=== PATIENT | male | born 1995 | race Caucasian/White ===

== ENCOUNTER 2016-04-16 09:31 | Inpatient (IN) | payer OTHER ==
[2016-04-16] VITALS (7 sets, daily range): BP systolic 127–160; BP diastolic 84–104; PULSE 104–128; RESP 18–22; TEMP 98–99; O2SAT 98–100
[~2016-04-16] VITALS: Ht 182.9 cm; Wt 76.7 kg
[~2016-04-16 09:31] MED LIST: CIPR500T2 PO
--- NOTE | 2016-04-16 09:52 | PD ---
HPI Chief Complaint: Suicide Ideation/Attempt Time Seen by Provider: 09:40 Travel History International Travel<30 days: No Contact w/Intl Traveler<30days: No Traveled to known affect area: No History of Present Illness HPI Patient is a 20-year-old male presents to emergency room with police officers for suicidal ideations. White act initiated by police officers. As per police , patient called the station and told officers that he needs to go to prison, apparently patient's mother got involved in the conversation and hung up the phone. Police officers went to his home for a well person check, reports that patient was scattered in his thoughts and reported that he needed psychiatric help. Patient admitted that he had suicidal ideations. Patient in the emergency room, reports that he needs psychiatric help, reports that he needed help a long time ago but but never got it. Patient reports that he is suicidal, reports no plan for suicide. Patient reports that he is " taking too much." Patient reports that "my father is a bad man." Patient reports "I am being vague, I just need to talk to." Patient will not admit or deny use of any drugs or alcohol. PFSH Past Medical History Asthma: Yes Autoimmune Disease: No Cardiovascular Problems: No Diminished Hearing: No Genitourinary: No Musculoskeletal: No Neurologic: Yes Psychiatric: No Respiratory: Yes (HX OF ASTHMA) Immunizations Current: Yes Past Surgical History Surgical History: No Previous Surgery Family History Family History: Negative Social History Alcohol Use: No Tobacco Use: No Substance Use: Yes (Marijuana daily ) Allergies-Medications (Allergen,Severity, Reaction): Coded Allergies: No Known Allergies (Verified , 03/24/16) Reported Meds & Prescriptions Reported Meds & Active Scripts Active Reported Ciprofloxacin (Ciprofloxacin HCl) 500 Mg Tab 500 Mg PO BID Review of Systems General / Constitutional: No: Fever Eyes: No: Visual changes HENT: No: Headaches Cardiovascular: No: Chest Pain or Discomfort Respiratory: No: Shortness of Breath Gastrointestinal: No: Abdominal Pain Genitourinary: No: Dysuria Musculoskeletal: No: Pain Skin: No Rash Neurologic: No: Weakness Psychiatric: Positive: Anxiety, Depression, Suicidal Ideations, No: Homicidal Ideation Endocrine: No: Polydipsia Hematologic/Lymphatic: No: Easy Bruising Physical Exam Narrative GENERAL: No acute distress, nontoxic SKIN: Warm and dry. HEAD: Atraumatic. Normocephalic. ENT: No nasal bleeding or discharge. Mucous membranes pink and moist. NECK: Trachea midline. No JVD. CARDIOVASCULAR: Regular rate and rhythm. No murmur appreciated. RESPIRATORY: No accessory muscle use. Clear to auscultation. Breath sounds equal bilaterally. GASTROINTESTINAL: Abdomen soft, non-tender, nondistended. Hepatic and splenic margins not palpable. MUSCULOSKELETAL: No obvious deformities. No clubbing. No cyanosis. No edema. NEUROLOGICAL: Awake and alert. No obvious cranial nerve deficits. Motor grossly within normal limits. Normal speech. PSYCHIATRIC: Flat affect, anxious on exam Data Data Last Documented VS Vital Signs Date Time Temp Pulse Resp B/P Pulse Ox O2 Delivery O2 Flow Rate FiO2 04/16/16 10:29 108 18 136/91 98 Room Air 04/16/16 09:40 98.8 Orders Complete Blood Count With Diff (04/16/16 09:47) Comprehensive Metabolic Panel (04/16/16 09:47) Drug Screen, Random Urine (04/16/16 09:47) Psych Screen (04/16/16 09:47) Lorazepam (Ativan) (04/16/16 10:00) Labs Laboratory Tests Test 04/16/16 09:50 White Blood Count 10.4 TH/MM3 Red Blood Count 5.37 MIL/MM3 Hemoglobin 16.6 GM/DL Hematocrit 48.7 % Mean Corpuscular Volume 90.7 FL Mean Corpuscular Hemoglobin 31.0 PG Mean Corpuscular Hemoglobin 34.1 % Concent Red Cell Distribution Width 13.0 % Platelet Count 291 TH/MM3 Mean Platelet Volume 7.9 FL Neutrophils (%) (Auto) 83.0 % Lymphocytes (%) (Auto) 9.3 % Monocytes (%) (Auto) 7.2 % Eosinophils (%) (Auto) 0.1 % Basophils (%) (Auto) 0.4 % Neutrophils # (Auto) 8.7 TH/MM3 Lymphocytes # (Auto) 1.0 TH/MM3 Monocytes # (Auto) 0.8 TH/MM3 Eosinophils # (Auto) 0.0 TH/MM3 Basophils # (Auto) 0.0 TH/MM3 CBC Comment DIFF FINAL Differential Comment Sodium Level 139 MEQ/L Potassium Level 4.1 MEQ/L Chloride Level 107 MEQ/L Carbon Dioxide Level 22.3 MEQ/L Anion Gap 10 MEQ/L Blood Urea Nitrogen 14 MG/DL Creatinine 1.00 MG/DL Estimat Glomerular Filtration 96 ML/MIN Rate Random Glucose 121 MG/DL Calcium Level 9.6 MG/DL Total Bilirubin 0.8 MG/DL Aspartate Amino Transf 21 U/L (AST/SGOT) Alanine Aminotransferase 40 U/L (ALT/SGPT) Alkaline Phosphatase 66 U/L Total Protein 8.6 GM/DL Albumin 4.8 GM/DL MDM Medical Decision Making Medical Screen Exam Complete: Yes Emergency Medical Condition: Yes Differential Diagnosis Suicidal ideations, anxiety attack, unspecified psychosis, drug abuse Narrative Course 20-year-old male who presents to emergency room with police officers after he had been White acted for suicidal ideations. Psychiatric screening labs drawn. Will have patient see psych screeners after he is medically cleared Concepcion Rainey DO Apr 16, 2016 09:52
[2016-04-16] MEDS ORDERED: LORazepam 1 MG TAB PO ONE (10:00)
[2016-04-16 10:04] LABS: AUTOMATED NEUTROPHIL # 8.7 TH/MM3 (1.8-7.7); BASOPHIL % 0.4 % (0.0-2.0); EOSINOPHIL % 0.1 % (0.0-4.0); HEMATOCRIT 48.7 % (39.0-51.0); HEMO FLAGS DIFF FINAL; LYMPH % 9.3 % (9.0-44.0); MEAN CELL VOLUME 90.7 FL (80.0-100.0); MEAN CORPUSCULAR HGB CONC 34.1 % (32.0-36.0); MONO % 7.2 % (0.0-8.0); PLATELET COUNT 291 TH/MM3 (150-450); RED BLOOD COUNT 5.37 MIL/MM3 (4.50-5.90); WHITE BLOOD COUNT 10.4 TH/MM3 (4.0-11.0)
[2016-04-16 10:21] LABS: ALKALINE PHOSPHATASE 66 U/L (45-117); TOTAL BILIRUBIN ADULT 0.8 MG/DL (0.2-1.0)
[2016-04-16 10:22] LABS: ALT (GPT) 40 U/L (9-52); ANION GAP 10 MEQ/L (5-15); AST (GOT) 21 U/L (15-39); BICARBONATE 22.3 MEQ/L (21.0-32.0); BLOOD UREA NITROGEN 14 MG/DL (7-18); CHLORIDE 107 MEQ/L (98-107); GLOMERULAR FILTRATION RATE 96 ML/MIN (>89); POTASSIUM 4.1 MEQ/L (3.5-5.1); SODIUM (NA) 139 MEQ/L (136-145)
[2016-04-16 11:42] LABS: AMPHETAMINE, URINE NEG (NEG); BARBITURATES, URINE NEG (NEG); COCAINE, URINE NEG (NEG)
[2016-04-16] MEDS ORDERED: ALUMINUM/MAGNESIUM/SIMETH 30 ML CUP PO PRN (18:00)
[2016-04-16] MEDS ORDERED: LORazepam 1 MG TAB PO PRN (18:00)
[2016-04-16] MEDS ORDERED: MAGNESIUM HYDROXIDE SUSP 30 ML CUP PO PRN (18:00)
[2016-04-16] MEDS ORDERED: LORazepam 2 MG/ML VIAL IM PRN (18:00)
[2016-04-17] VITALS (13 sets, daily range): BP systolic 116–153; BP diastolic 51–103; PULSE 92–155; RESP 16–22; TEMP 97.8–99.2; O2SAT 98–100
[2016-04-17 08:02] LABS: ANION GAP 10 MEQ/L (5-15); BICARBONATE 24.4 MEQ/L (21.0-32.0); BLOOD UREA NITROGEN 12 MG/DL (7-18); CHLORIDE 104 MEQ/L (98-107); GLOMERULAR FILTRATION RATE 100 ML/MIN (>89); POTASSIUM 4.1 MEQ/L (3.5-5.1); SODIUM (NA) 138 MEQ/L (136-145)
[2016-04-17 08:04] LABS: HDL CHOLESTEROL 87.3 MG/DL (40.0-60.0); LDL CHOLESTEROL 57 MG/DL (0-99)
--- NOTE | 2016-04-17 09:58 | HHI.HP ---
Provisional Diagnosis Admission Date Apr 16, 2016 at 17:44 [place] I. 1. Other psychotic disorder Rule out substance-induced psychotic disorder Rule out primary psychotic disorder Rule out psychotic disorder due to a general medical condition [place] II. Deferred [place] V. GAF is 15 presently Certification of Person's Competence To Provide Express and Informed Consent I have personally examined Eliseo Shay , a person being served at [facility] on, Apr 17, 2016 09:58. Express and informed consent means consent voluntarily given in writing, by a competent person, after sufficient explanation and disclosure of the subject matter involved to enable the person to make a knowing and willful decision without any element of force, fraud, deceit, duress, or other form of constraint or coercion. This person is 18 years of age or older, is not now known to be incompetent to consent to treatment with a guardian advocate, and does not have a health care surrogate or proxy currently making medical treatment decisions. I have found this person to be one of the following: [] Competent to provide express and informed consent, as defined above, for voluntary admission to this facility and is competent to provide express and informed consent for treatment. He/she has the consistent capacity to make well reasoned, willful, and knowing decisions concerning his or her medical or mental health treatment. The person fully and consistently understands the purpose of the admission for examination/placement and is fully capable of personally exercising all rights [place] [x] Incompetent to provide express and informed consent to voluntary admission, and this is incompetent to provide express and informed consent to treatment. The person must be transferred to involuntary status and a petition for a guardian advocate filed with the Circuit Court. [] Refusing to provide express and informed consent to voluntary admission but is competent to provide express and informed consent for treatment. The person must be discharged or transferred to involuntary status. Form shall be completed within 24 hours of a person's arrival at the receiving facility and filed in the clinical record of each person: 1. Admitted on a voluntary basis 2. Permitted to provide express and informed consent to his/her own treatment 3. Allowed to transfer from involuntary to voluntary status 4. Prior to permitting a person to consent to his or her own treatment after having been previously found incompetent to consent to treatment. History of Present Illness Capacity: Lacks Capacity HPI Mr. 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 I see that he told the ED provider that he has been in need of psychiatric help for some time but never got it. Reviewing the electronic medical record, I note that the patient was seen by nurse practitioner Binu in the middle of March after presenting with psychosis and admitting to recent use of Dilaudid and Xanax, although his urine toxicology was negative at that time. Patient seen and examined. Chart reviewed. Case discussed with nursing staff on the inpatient psychiatric unit. I arrived on the unit in response to an " all male staff" call that had been initiated because the patient grew aggressive and tried to assault staff following a telephone conversation. Upon my arrival the patient remains agitated and I have ordered him medicated with Haldol 10mg, Ativan 2mg and Benadryl 50mg IM and placed in restraints for safety. I return to evaluate him ~30min later [id number] as required for violent restraint. He is now somewhat calmer. He is in no acute physical distress. He presents as quite paranoid and somewhat disorganized. When I ask why he has come into the hospital he says, "Well, my mom's straight. I know what the hell I want. I need to help." He endorses ongoing AVH "like things that aren't there" although he cannot be more specific. He says that his psychiatric symptoms began "because I stopped doing drugs. [id number]." When I ask what drugs, he replies that he has been "trippin'." I inquire again what he has been tripping on, and he says "trippin' about my nayely. Trippin' about my fucking nayely." He then admits to use of opiates and benzos in the past and reports more recent use of MDMA. He denies SI or HI but seems unreliable to contract for safety in his present state. Psychiatric ROS somewhat limited because of his mental state. Unable to obtain reliable past psychiatric, family, chemical dependency or social history from patient because of his mental state. Given patient's mental state, I did endeavor to obtain collateral information from patient's mother, whose contact is given as Brandie Shay and is listed in EMR. I tried calling the home number and this rang to a voicemail with 'faVaultize machine' tones playing over it. I left a generic voicemail requesting a call back. I additionally called the 'Other' number, and this rang to a [facility] [employer] with a message saying they were not accepting calls. Nursing staff does inform me that a woman giving her name as Brandie Pacheco and reporting that she is patient's mother has been calling the unit and harassing staff. I see in nursing notes that she threatened: "I will come there and galicia you down if my son remains psychotic. I will [place] all of you." I am unable to confirm that Ms. Pacheco is in fact the patient's mother and the patient himself is unable to provide any clarity on this issue given his current mental state. Review of Systems ROS Limitations: Uncooperative, Psychotic, Poor Historian Other No reported physical complaints at this time, but limited ROS because of his present mental state. Past Psych History Psychological trauma history Unable to obtain at this time. Violence risk - others (6 mos) Elevated. Aborted assaultive behavior on the unit. Violence risk - self (6 mos) Elevated due to self-neglect. Substance Abuse History Drugs/Alcohol past 12 months See above Past Family Social History Coded Allergies: No Known Allergies (Verified , 03/24/16) Past Medical History See EMR Reported Medications Ciprofloxacin 500 Mg [id number] Mg PO BID Ref 0 03/24/16 Current Medications Medications (Trade) Dose Ordered Sig/Kaylin Route Start Time Stop Time Status Last Admin (Ativan) 1 mg Q6H PRN PO 04/16/16 18:00 Hold (Ativan Inj) 1 mg Q6H PRN IM 04/16/16 18:00 Hold 04/16/16 19:24 (Tylenol) 650 mg Q4H PRN PO 04/16/16 18:00 (Milk Of Magnesia Liq) 30 ml DAILY PRN PO 04/16/16 18:00 (Mag-Al Plus Susp Liq) 30 ml Q6H PRN PO 04/16/16 18:00 Family History See above Social History See above Patient's Strengths (min. 2) In a monitored setting. Verbally fluent. Physical Exam A physical examination was completed in the emergency room by the ER staff and the patient was medically cleared. On my examination today, the patient appears somewhat calmer than when I initially arrived on the unit. He appears to be a well-nourished, well-developed young adult male. He is somewhat diaphoretic but has no hand tremor, no mydriasis, no other motoric abnormalities that I can note. He remains in restraints for safety. Labs and vital signs reviewed. Vital Signs Vital Signs Date Time Temp Pulse Resp B/P Pulse Ox O2 Delivery O2 Flow Rate FiO2 04/17/16 07:50 97.8 120 22 141/95 99 04/16/16 19:48 Room Air Lab Results Item Value Date Time White Blood Count 10.4 TH/MM3 04/16/16 0950 Hemoglobin 16.6 GM/DL 04/16/16 0950 Platelet Count 291 TH/MM3 04/16/16 0950 Sodium Level 138 MEQ/L 04/17/16 0704 Potassium Level 4.1 MEQ/L 04/17/16 0704 Chloride Level 104 MEQ/L 04/17/16 0704 Carbon Dioxide Level 24.4 MEQ/L 04/17/16 0704 Blood Urea Nitrogen 12 MG/DL 04/17/16 0704 Creatinine 0.97 MG/DL 04/17/16 0704 Aspartate Amino Transf (AST/SGOT) 21 U/L 04/16/16 0950 Alanine Aminotransferase (ALT/SGPT) 40 U/L 04/16/16 0950 Alkaline Phosphatase 66 U/L 04/16/16 0950 Urine Opiates Screen NEG 04/16/16 1115 Urine Barbiturates Screen NEG 04/16/16 1115 Urine Amphetamines Screen NEG 04/16/16 1115 Urine Benzodiazepines Screen NEG 04/16/16 1115 Urine Cocaine Screen NEG 04/16/16 1115 Urine Cannabinoids Screen NEG 04/16/16 1115 Mental Status Examination Patient is in hospital gown. He is fairly disheveled. He is awake and alert and oriented to person, place and date. No motoric abnormalities noted. Speech is somewhat rambling but within normal limits for rate, tone and volume. Language and fund of knowledge are difficult to assess given his mental state otherwise but seem at least average. Mood is difficult to assess but affect seems somewhat restricted and dysphoric. Thought process fairly disorganized with loosening of associations. Patient is fairly paranoid. He appears frankly internally stimulated and reports audiovisual hallucinations as noted above. He denies SI or HI but is unreliable contract for safety in his present state. Insight and judgment are presently poor. Assessment & Plan Problem List: (1) Psychosis ICD Code: F29 Assessment & Plan This is a 20-year-old male with a past chart diagnosis of drug- induced psychosis who presents under a White act and is presently admitted to the inpatient psychiatric unit. Patient presents to me as floridly psychotic. He reports recent use of MDMA. Collateral information is presently wanting, but I am gravely concerned that the patient is suffering either a first break psychotic episode or else a psychotic disorder due to a drug or medical condition. Patient is presently restrained, and we will try to discontinue these as soon as safe to do so. He requires psychiatric admission at this time for safety, observation and stabilization. --Admit inpatient --Involuntary status. I've completed first opinion. Consult for second opinion. Request healthcare surrogate and guardian advocate. --Obtain extended psychiatric urine toxicological screening --Consult to the hospitalist for assessment for possible medical contributions to psychosis --Head CT once patient is calm enough to perform safely. Check EKG. Will also check B12, RPR, HIV, ammonia as part of psychosis workup. Also check a CK given agitation. Encourage fluids. BMP in the morning. --CIWA with Ativan for withdrawal. --Vitals q4h --Counselor to see --Dispo planning --ELOS: unclear at present. Discharge Planning Pending psychiatric stabilization. Request HC Surrog/Guard Advoc?: Yes Problem Qualifiers (1) Psychosis: Qualified Code: F28 - Other psychotic disorder not due to substance or known physiological condition Chadwick Gomez MD Apr 17, 2016 09:58
[2016-04-17] MEDS ORDERED: LORazepam 2 MG/ML VIAL ONE (09:59)
[2016-04-17] MEDS ORDERED: HALOPERIDOL LACTATE 5 MG/ML AMP IM ONE (10:00)
[2016-04-17] MEDS ORDERED: HALOPERIDOL LACTATE 5 MG/ML AMP ONE (10:00)
[2016-04-17] MEDS ORDERED: LORazepam 2 MG/ML VIAL IM ONE (10:00)
--- NOTE | 2016-04-17 10:58 | PD.CONS ---
Provisional Diagnosis Admission Date Apr 16, 2016 at 17:44 History of Present Illness Service Psychiatry Consult Requested By Primary Care Physician No Primary Care Physician HPI Patient is a 20-year-old white male admitted to Dr. lawson service under the White act. Patient was observed by me in the day room becoming quite out of control surrounding and aggressive towards staff necessitating an "all male staff" announcement. Patient was brought under control by staff, brought to restraint room placed in full leather restraints. Dr. lawson was also present the ETO of Haldol Benadryl and Ativan. Patient was screaming incoherently. Dr. lawson signed first opinion petition supporting White act. I agree. Patient meets criteria for involuntary psychiatric hospitalization under the White act. Thus I will cosign second opinion petition supporting White act Review of Systems ROS Limitations: Altered Mental Status, Uncooperative, Combative, Psychotic Past Family Social History Coded Allergies: No Known Allergies (Verified , 03/24/16) Reported Medications Ciprofloxacin 500 Mg [id number] Mg PO BID Ref 0 03/24/16 Current Medications Medications (Trade) Dose Ordered Sig/Kaylin Route Start Time Stop Time Status Last Admin (Ativan) 1 mg Q6H PRN PO 04/16/16 18:00 Hold (Ativan Inj) 1 mg Q6H PRN IM 04/16/16 18:00 Hold 04/16/16 19:24 (Tylenol) 650 mg Q4H PRN PO 04/16/16 18:00 (Milk Of Magnesia Liq) 30 ml DAILY PRN PO 04/16/16 18:00 (Mag-Al Plus Susp Liq) 30 ml Q6H PRN PO 04/16/16 18:00 (Benadryl Inj) 50 mg ONCE ONCE IM 04/17/16 11:00 04/17/16 11:01 04/17/16 10:14 Physical Exam Vital Signs Vital Signs Date Time Temp Pulse Resp B/P Pulse Ox O2 Delivery O2 Flow Rate FiO2 04/17/16 07:50 97.8 120 22 141/95 99 04/16/16 19:48 Room Air Mental Status Examination Speech: Incoherent Orientation: Person Memory: Unremarkable Thought Process: Other (difficult to ascertain due to patient psychosis and behavior) Thought Content: Other (difficult to ascertain due to patient psychosis and behavior) Hallucination Type: None (difficult to ascertain but appears to be responding to internal stimuli) Attention and Concentration: Other (poor) Suicidal Ideation: No (difficult to ascertain due to patient psychosis) Previous Suicide Attempts: No Homicidal Ideation: No (difficult to ascertain due to patient psychosis the patient earlier in the admission did strike out at a floor staff) Previous Homicide Attempts: No (unknown at this time) Insight: Poor Judgement: Poor Affect: Other (marked increase range and intensity) Mood: Angry, Irritable Motor Activity: Normal gait Assessment & Plan Problem List: (1) Unspecified psychosis ICD Code: F29 Assessment & Plan Estimated LOS: Saúl Mcgowan MD Apr 17, 2016 10:58
[2016-04-17] MEDS ORDERED: diphenhydrAMINE HCL 50 MG/ML VIAL IM ONE (11:00)
[2016-04-17] MEDS ORDERED: LORazepam 2 MG TAB PO PRN (12:15)
[2016-04-17] MEDS ORDERED: LORazepam 2 MG/ML VIAL IM PRN ×3 (12:15)
[2016-04-17] MEDS ORDERED: LORazepam 1 MG TAB PO PRN (12:15)
[2016-04-17] MEDS ORDERED: FLUMAZENIL 1 MG/10 ML VIAL IV PUSH PRN (12:15)
[2016-04-17 15:50] LABS: CKMB 1.5 NG/ML (0.5-3.6)
[2016-04-17 16:32] LABS: HEMOGLOBIN A1a 1.2 %; HEMOGLOBIN A1b 0.8 %; HEMOGLOBIN Ao 85.8 %; HEMOGLOBIN F 1.1 %; HEMOGLOBIN LA1C 1.9 %; HEMOGLOBIN P3 3.6 %
[2016-04-17 21:28] LABS: AMPHETAMINE, URINE NEG (NEG); BARBITURATES, URINE NEG (NEG); COCAINE, URINE NEG (NEG)
[2016-04-18 03:57] VITALS: BP 148/88; PULSE 114; RESP 18; TEMP 99.2; O2SAT 99
[2016-04-18 07:56] LABS: POTASSIUM 4.3 MEQ/L (3.5-5.1)
[2016-04-18 08:34] VITALS: BP 151/96; PULSE 112; RESP 18; TEMP 99
[2016-04-18] MEDS: LORazepam 2 MG/ML VIAL IM PRN ×2 (08:50→10:32)
[2016-04-18] MEDS ORDERED: diphenhydrAMINE HCL 50 MG/ML VIAL ONE (10:19)
[2016-04-18] MEDS ORDERED: HALOPERIDOL LACTATE 5 MG/ML AMP ONE (10:20)
[2016-04-18] MEDS ORDERED: HALOPERIDOL LACTATE 5 MG/ML AMP IM STA (10:20)
[2016-04-18] MEDS ORDERED: LORazepam 2 MG/ML VIAL IM STA (10:20)
[2016-04-18] MEDS ORDERED: diphenhydrAMINE HCL 50 MG/ML VIAL IM STA (10:20)
--- NOTE | 2016-04-18 11:37 | HHI.PYPN ---
Subjective Remarks Patient seen and examined with counselor. Prior to my arrival on the unit, patient grew agitated and tried to assault staff. Patient was placed in locked restraints and Dr. Mcgowan, who was on the floor, ordered the patient an ETO of Haldol. I saw and evaluated the patient within 60min of initiation of restraints as required. He is somewhat calmer, having been medicated, but remains psychotic. He says he has "no idea" why he tried to assault staff. He remains internally preoccupied. He cannot contract for safety and answers "I don't know" to questions about suicidality. When I ask if he is having any pain or discomfort from the restraints, he flippantly replies, "just one spot: my nayely." No evident side effects from medications. Patient is able to say that he takes Risperdal twice a day for the management of some sort of psychiatric issue but says that he didn't take it in the several days prior to admission. He reports that he tolerated this medication well. I have been provided with an alternate number for patient's mother Brandie at [phone], and I tried to call this ~12:20pm but received a message that the wireless caller was not available. I was not given the opportunity to leave a VM. Review of Systems ROS Limitations: Uncooperative, Psychotic, Poor Historian Other Except as above, no physical complaints. Objective Alert: Yes Dexter: Person, Place Mood: Agitated Affect: Restricted Memory Intact: Comment (Not formally assessed today) Hallucinations: Other (Appears int stim) Delusions: Yes Delusion Type: Paranoid Suicidal: Ideation (No SI voiced) Homicidal: Ideation (No HI voiced) Insight/Judgement Poor Remarks TP disorganized. Speech rambling. No motoric abnormalities noted. Labs Test 04/17/16 04/17/16 04/18/16 14:47 19:40 06:45 Ammonia 35 MCMOL/L Total Creatine Kinase 788 U/L 1556 U/L Creatine Kinase MB 1.5 NG/ML 5.0 NG/ML Creatine Kinase MB % 0.2 % 0.3 % Urine Opiates Screen NEG Urine Barbiturates Screen NEG Urine Amphetamines Screen NEG Urine Benzodiazepines Screen NEG Urine Cocaine Screen NEG Urine Cannabinoids Screen POS Sodium Level 138 MEQ/L Potassium Level 4.3 MEQ/L Chloride Level 103 MEQ/L Carbon Dioxide Level 26.0 MEQ/L Anion Gap 9 MEQ/L Blood Urea Nitrogen 16 MG/DL Creatinine 0.94 MG/DL Estimat Glomerular Filtration 103 ML/MIN Rate Random Glucose 87 MG/DL Calcium Level 8.9 MG/DL Labs reviewed. Ammonia mildly elevated. CK uptrending, likely due to ongoing agitation. Renal function remains intact. B12, RPR, HIV pending. Pt remains too agitated for Head CT. Extended toxicology pending but basic urine toxicology associated with the extended toxicology is positive for cannabinoids. Vitals/IOs Vital Signs Date Time Temp Pulse Resp B/P Pulse Ox O2 Delivery O2 Flow Rate FiO2 04/18/16 08:34 99.0 112 18 151/96 04/18/16 03:57 99 04/16/16 19:48 Room Air Assessment & Plan Problem List: (1) Psychosis ICD Code: F29 Assessment & Plan Patient continues to experience severely decompensated psychotic episode with violent behavior. Attempts to obtain collateral from family by myself and by counselor wanting today. I do not suspect that mild hyperammonemia is causing psychosis, but I will await hospitalist input, and I did discuss the case briefly with Dr. Gaines before he has evaluated pt. Patient likely would benefit from antipsychotic. I will try resuming his reported Risperdal at low dose with plans to titrate. Continue close monitoring of CK and renal function. D/c restraints once safe to do so. Continue 1:1. Continue other medications and care as ordered. Justification for Cont. Inpt. Impairments and safety. Impairments in self-care. Impairments in reality construction. Impairments in social functioning. Locating conditions, namely the elevated CK. High risk for decompensation. Discharge Planning Pending psychiatric stabilization Request HC Surrog/Guard Advoc?: Yes Problem Qualifiers (1) Psychosis: Qualified Code: F28 - Other psychotic disorder not due to substance or known physiological condition Chadwick Gomez MD Apr 18, 2016 11:37
[2016-04-18 11:59] VITALS: BP 147/81; PULSE 95; RESP 20; TEMP 98.5; O2SAT 98
--- NOTE | 2016-04-18 11:59 | EKG ---
Date Performed: 04/17/2016 Time Performed: 13:19:42 PTAGE: 20 years EKG: POSSIBLE ATRIAL FLUTTER NONSPECIFIC ST & T-WAVE ABNORMALITY ABNORMAL RHYTHM ECG PREVIOUS TRACING : 11/27/2011 11.42 DOCTOR: Eliseo Driscoll Interpretating Date/Time 04/18/2016 11:58:02
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
[2016-04-18] MEDS ORDERED: SODIUM CHLOR 0.9% 1000 ML INJ 1,000 ML IV ONE ×2 (13:30→14:30)
[2016-04-18 15:17] VITALS: BP 133/82; PULSE 108; RESP 18; TEMP 100.7; O2SAT 96
[2016-04-18 15:45] VITALS: BP 133/67; PULSE 94; RESP 16; TEMP 98; O2SAT 98
[2016-04-18] MEDS: ACETAMINOPHEN 325 MG TAB PO PRN (15:45)
[2016-04-18 20:27] VITALS: BP 133/76; PULSE 98; RESP 20; TEMP 98.4; O2SAT 100
[2016-04-18] MEDS: risperiDONE ODT 1 MG TAB PO SCH (21:26)
[2016-04-19 05:38] VITALS: BP 137/69; PULSE 87; RESP 18; TEMP 98.3; O2SAT 99
[2016-04-19 06:10] VITALS: BP 137/69; PULSE 87; RESP 18; TEMP 98.3; O2SAT 99
[2016-04-19 06:16] LABS: POTASSIUM 3.7 MEQ/L (3.5-5.1)
[2016-04-19 07:31] LABS: CKMB 6.6 NG/ML (0.5-3.6)
[2016-04-19] MEDS: risperiDONE ODT 1 MG TAB PO SCH ×2 (08:17→21:02)
[2016-04-19 08:53] VITALS: BP 140/74; PULSE 108; RESP 18; TEMP 97.8; O2SAT 97
[2016-04-19] MEDS: SODIUM CHLOR 0.9% 1000 ML INJ 1,000 ML IV SCH ×4 (10:00→22:30)
--- NOTE | 2016-04-19 11:22 | HHI.PYPN ---
Subjective Remarks Patient seen and examined. Case discussed with RN, counselor, OT. Patient was transferred to Med-Psych unit for IVF for elevated CK. He remains on 1:1 for observation and safety. Per RN, patient has been calm but selectively mute. On my examination today, patient endorses ongoing hallucinations, although he struggles to describe these in detail. He says, "my problem is I'm still a boy , not ready to be a man. Can't turn off all the thoughts in my head. People telling me who I am." No SI or HI voiced. Patient now says that he has been using K2, cannabis, mushrooms and LSD prior to admission. Thought process is slowed with thought blocking. No evident side effects from medications. ~30 minute telephone consultation with patient's mother and father. Mother voices concerns that patient's psychosis is related to antibiotics for UTI that patient took in March. She reports that he has a psychiatric PA outpatient who prescribed Risperdal. She says that current hospitalization was triggered when patient called 911 and said he needed to be taken to intermediate in his psychotic state. I discuss patient's differential diagnosis and treatment plan from a psychiatric standpoint and also discuss the comorbid medical issues, especially the elevated CK. Parents are in agreement with Risperdal treatment and IVF but would like to keep other psychotropics and medications to a minimum. Parents articulate a desire to have the patient home as soon as it is medically safe to do so, even if he is not completely psychiatrically stabilized. They report that they can provide 24 hour care and supervision of the patient. Review of Systems ROS Limitations: Poor Historian Other No reported physical complaints. Objective Alert: Yes [place]: Person, Place (at least) Mood: Calm Affect: Flat Memory Intact: Comment (Not assessed today) Hallucinations: Other (Remains internally preoccupied.) Delusions: Yes Delusion Type: Paranoid Suicidal: Ideation (No SI) Homicidal: Ideation (No HI) Insight/Judgement Poor Remarks No motoric abnormalities noted. Speech slow, halting. TP slow with thought blocking. No posturing or stereotypies. Labs Test 04/19/16 05:20 Sodium Level 140 MEQ/L Potassium Level 3.7 MEQ/L Chloride Level 105 MEQ/L Carbon Dioxide Level 27.0 MEQ/L Anion Gap 8 MEQ/L Blood Urea Nitrogen 11 MG/DL Creatinine 0.74 MG/DL Estimat Glomerular Filtration 136 ML/MIN Rate Random Glucose 91 MG/DL Calcium Level 8.5 MG/DL Total Creatine Kinase 1637 U/L Creatine Kinase MB 6.6 NG/ML Creatine Kinase MB % 0.4 % Labs reviewed. CK essentially unchanged. Renal function intact. I note HCT was performed in March 2016 and was read as negative. First break psychosis workup neg. Extended UTox pending. Vitals/IOs Vital Signs Date Time Temp Pulse Resp B/P Pulse Ox O2 Delivery O2 Flow Rate FiO2 04/19/16 08:53 97.8 108 18 140/74 97 04/16/16 19:48 Room Air Intake and Output 04/18/16 04/18/16 04/18/16 07:59 15:59 23:59 Intake Total 1000 ml Output Total 300 ml Balance 700 ml Assessment & Plan Problem List: (1) Psychosis ICD Code: F29 Assessment & Plan Continue Risperdal as ordered. I will continue CIWA with Ativan for withdrawal but will discontinue PRN Ativan per parent/HCS preference. If the patient becomes agitated, RN can call for ETO. Continue 1:1 for observation/safety. Trend CK/BMP in am. I note Dr. Gaines has ordered ongoing IVF. I will touch base with Dr. Gaines after he has made his rounds on pt. Justification for Cont. Inpt. Safety concerns. Impairments in reality testing. Impairments in social functioning. Risk for decompensation. Discharge Planning Pending psychiatric/medical stabilization. Request HC Surrog/Guard Advoc?: Yes Problem Qualifiers (1) Psychosis: Qualified Code: F28 - Other psychotic disorder not due to substance or known physiological condition Chadwick Gomez MD Apr 19, 2016 11:22
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
[2016-04-19 19:47] VITALS: BP 132/81; PULSE 85; RESP 18; TEMP 98.2; O2SAT 99
[2016-04-20 02:50] VITALS: BP 130/73; PULSE 84; TEMP 97.6; O2SAT 98
[2016-04-20] MEDS: ACETAMINOPHEN 325 MG TAB PO PRN (04:14)
[2016-04-20 05:38] LABS: BICARBONATE 25.9 MEQ/L (21.0-32.0); POTASSIUM 3.7 MEQ/L (3.5-5.1)
[2016-04-20 05:41] VITALS: BP 155/93; PULSE 105; RESP 17; TEMP 97.8; O2SAT 98
[2016-04-20 06:00] VITALS: BP 146/83; PULSE 76; RESP 18; O2SAT 98
[2016-04-20] MEDS: SODIUM CHLOR 0.9% 1000 ML INJ 1,000 ML IV SCH ×2 (06:00→11:00)
[2016-04-20 06:11] LABS: CKMB 3.6 NG/ML (0.5-3.6)
[2016-04-20] MEDS: risperiDONE ODT 1 MG TAB PO SCH (08:19)
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
[2016-04-20] MEDS ORDERED: RISP1 PO ×2 (12:53→13:08)
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
[2016-04-20 13:06] VITALS: BP 142/72; PULSE 85; RESP 18; O2SAT 100
[2016-04-23 07:40] LABS: BATH SALTS (MDPV) UR NEG (NEG); ECSTASY (MDMA) UR NEG (NEG); HEROIN (6-ACETYLMORPHINE) UR NEG (NEG); K2 SPICE UR NEG (NEG); OBMETHADONE UR NEG (NEG); OXYCODONE (PERCODAN) NEG (NEG); PHENCYCLIDINE URINE NEG (NEG)
== END 2016-04-20 14:30 | disposition home or self-care (01) | DRG 885 ==
LOC: NEPA 09:31 → NEDA 17:44 → H270 20:05 → H4EA 04-18 16:05
PROVIDERS: ADMIT Psychiatry & Neurology Psychiatry; ATTEND Psychiatry & Neurology Psychiatry
DX: F29 Unspecified psychosis not due to a substance or known physiological condition (principal); M62.82 Rhabdomyolysis; R45.851 Suicidal ideations; F12.90 Cannabis use, unspecified, uncomplicated; J45.909 Unspecified asthma, uncomplicated; F94.0 Selective mutism; F16.90 Hallucinogen use, unspecified, uncomplicated; Z78.1 Physical restraint status
CPT/HCPCS: 76937; 80048; 80053; 80061; 80307; 80352; 80354; 80356; 80358; 80359; 80371; 82140; 82550; 82552; 82607; 83036; 83789; 83992; 85025; 86592; 86703; 93005; 99284; G0480; G0481; J1200; J1630; J2060; J7030

== ENCOUNTER 2016-04-25 22:41 | Emergency (ER) | payer OTHER ==
[~2016-04-25] VITALS: Ht 182.9 cm; Wt 81.0 kg
[~2016-04-25 22:41] MED LIST changes: -CIPR500T2 PO; +RISP1 PO
[2016-04-25 22:46] VITALS: BP 144/81; PULSE 94; RESP 14; TEMP 98.4; O2SAT 97
[2016-04-25] MEDS ORDERED: SODIUM CHLOR 0.9% 1000 ML INJ 1,000 ML IV ONE (23:33)
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
[2016-04-26 00:07] LABS: AUTOMATED NEUTROPHIL # 5.9 TH/MM3 (1.8-7.7); BASOPHIL % 0.5 % (0.0-2.0); EOSINOPHIL # 0.1 TH/MM3 (0-0.4); EOSINOPHIL % 0.8 % (0.0-4.0); HEMATOCRIT 43.4 % (39.0-51.0); HEMO FLAGS DIFF FINAL; LYMPH % 23.5 % (9.0-44.0); LYMPHOCYTE # 2.3 TH/MM3 (1.0-4.8); MEAN CELL VOLUME 90.8 FL (80.0-100.0); MEAN CORPUSCULAR HEMOGLOBIN 31.2 PG (27.0-34.0); MEAN CORPUSCULAR HGB CONC 34.3 % (32.0-36.0); MONO % 14.8 % (0.0-8.0); NEUT % 60.4 % (16.0-70.0); PLATELET COUNT 286 TH/MM3 (150-450); RED BLOOD COUNT 4.77 MIL/MM3 (4.50-5.90); RED CELL DISTRIBUTION WIDTH 12.9 % (11.6-17.2); WHITE BLOOD COUNT 9.8 TH/MM3 (4.0-11.0)
--- NOTE | 2016-04-26 00:13 | RADRPT ---
EXAM DATE/TIME: 04/25/2016 23:59 [facility] COMPARISON: CT BRAIN W/O CONTRAST, March 24, 2016, 16:37. INDICATIONS : Altered mental status. Headache. RADIATION DOSE: 40.70 CTDIvol (mGy) MEDICAL HISTORY : Asthma. SURGICAL HISTORY : None. ENCOUNTER: Initial ACUITY: 1 day PAIN SCALE: 6/10 LOCATION: cranial TECHNIQUE: Multiple contiguous axial images were obtained of the head. Using automated exposure control and adj ustment of the mA and/or kV according to patient size, radiation dose was kept as low as reasonably a chievable to obtain optimal diagnostic quality images. FINDINGS: CEREBRUM: The ventricles are normal for age. No evidence of midline shift, mass lesion, hemorrhage or acute in farction. No extra-axial fluid collections are seen. POSTERIOR FOSSA: The cerebellum and brainstem are intact. The 4th ventricle is midline. The cerebellopontine angle i s unremarkable. EXTRACRANIAL: The visualized portion of the orbits is intact. SKULL: The calvaria is intact. No evidence of skull fracture. CONCLUSION: Normal examination. Paxton Quarles MD on April 26, 2016 at 0:12 Board Certified Radiologist. This report was verified electronically.
[2016-04-26 00:16] LABS: ALT (GPT) 28 U/L (9-52); ANION GAP 9 MEQ/L (5-15); AST (GOT) 25 U/L (15-39); BICARBONATE 26.9 MEQ/L (21.0-32.0); BLOOD UREA NITROGEN 26 MG/DL (7-18); CHLORIDE 102 MEQ/L (98-107); GLOMERULAR FILTRATION RATE 102 ML/MIN (>89); MAGNESIUM 1.9 MG/DL (1.5-2.5); POTASSIUM 3.4 MEQ/L (3.5-5.1); SODIUM (NA) 138 MEQ/L (136-145)
[2016-04-26 00:18] LABS: ALKALINE PHOSPHATASE 58 U/L (45-117); CREATINE KINASE 185 U/L (39-308); TOTAL BILIRUBIN ADULT 0.4 MG/DL (0.2-1.0)
[2016-04-26] MEDS ORDERED: POTASSIUM CHLORIDE 20 MEQ CONTROLLED RELEASE TAB PO ONE (00:30)
== END 2016-04-26 00:58 | disposition home or self-care (01) ==
LOC: NEPB 22:41
DX: R51 Headache (principal); E87.6 Hypokalemia; J45.909 Unspecified asthma, uncomplicated
CPT/HCPCS: 70450; 80053; 82550; 83735; 85025; 96360; 99284; J7030